=== PATIENT | male | born 1970 | race African-American/Black ===

== ENCOUNTER 2019-07-13 | Emergency (ER) | payer OTHER ==
[2019-07-13 23:30] LABS: HEMATOCRIT 41.6 % (39.0-50.0); HEMOGLOBIN 13.7 g/dl (14.0-18.0); IMMATURE GRANULOCYTES 0.3 % (0.0-5.0); MEAN CORPUSCULAR HGB 27.3 pG CALC (26.0-32.0); MEAN CORPUSCULAR HGB CONC 32.9 g/L CALC (32.0-36.0); NEUT# 9.06 thou/uL (1.82-7.42); RED BLOOD COUNT 5.01 mill/uL (4.70-6.10); RED CELL DISTRI WIDTH 13.1 % (11.5-15.5)
[2019-07-13] MEDS ORDERED: VITAMIN B-1100 M1 PO (23:30)
[2019-07-13] MEDS ORDERED: CLARITIN10 M1 PO (23:30)
[2019-07-13] MEDS ORDERED: PRILOSEC20 MG/CAP PO (23:30)
[2019-07-13] MEDS ORDERED: DOCUSATE SOD100 M2 PO (23:31)
[2019-07-13] MEDS ORDERED: FLONASE AL50 MCG/ACT NAB (23:32)
[2019-07-13] MEDS ORDERED: ROBAXIN-750750 MG PO (23:32)
[2019-07-13 23:40] LABS: COCAINE NEGATIVE (NEGATIVE); METHADONE NEGATIVE (NEGATIVE); TETRAHYDROCANNABIONOL NEGATIVE (NEGATIVE); TRICYLIC ANTIDEPRESSANTS NEGATIVE (NEGATIVE); URINE BILIRUBIN - DIPSTICK NEGATIVE (NEGATIVE); URINE BLOOD DIPSTICK NEGATIVE (NEGATIVE); URINE COLOR YELLOW; URINE GLUCOSE - DIPSTICK NEGATIVE (NEGATIVE); URINE KETONE NEGATIVE (NEGATIVE); URINE LEUK ESTERASE NEGATIVE (NEGATIVE); URINE NITRITE - DIPSTICK NEGATIVE (Negative); URINE PROTEIN - DIPSTICK NEGATIVE (NEG-TRACE); URINE SPECIFIC GRAVITY 1.025; URINE UROBILINOGEN - DIPSTICK 0.2 E.U./dL (0.2)
[2019-07-13 23:41] LABS: BARBITURATES NEGATIVE (NEGATIVE); OXCYCODONE POSITIVE (NEGATIVE)
[2019-07-13 23:49] LABS: ALBUMIN 4.2 g/dL (3.2-5.0); ALKALINE PHOSPHATASE 78 u/l (38-126); ANION GAP 14 (6-22 (CALC)); BILIRUBIN, TOTAL 0.4 mg/dL (0.0-1.4); BUN 19 mg/dL (9-20); BUN/CREATININE RATIO 20 (12-20 (CALC)); CARBON DIOXIDE 23 mmol/l (22-30); CHLORIDE 105 mmol/l (95-108); GFR > 60 ML/MIN (>=60 (CALC)); GFR FOR AFR.AMER. > 60 ML/MIN (>=60 (CALC)); SGOT/AST 28 u/l (17-59); SODIUM 138 mmol/l (137-146)
[2019-07-14] LABS: MYOGLOBIN 75 ng/mL (0 - 121)
== END 2019-07-13 23:56 | disposition designated cancer center or children's hospital (05) | DRG 880 ==
PROVIDERS: Emergency Medicine
DX: F41.9 Anxiety disorder, unspecified (principal)